=== PATIENT | female | born 2000 | race Two or more races ===

== ENCOUNTER 2023-05-27 17:20 | Emergency (ER) | payer OTHER ==
[2023-05-27 17:45] VITALS: BP 106/56; O2SAT 100
[2023-05-27 18:02] LABS: BILIRUBIN,URINE NEGATIVE (NEGATIVE); GLUCOSE, URINE (UA) NEGATIVE (NEGATIVE); KETONES,URINE (UA) NEGATIVE (NEGATIVE); LEUKOCYTE ESTERASE, URINE NEGATIVE (NEGATIVE); NITRITE,URINE NEGATIVE (NEGATIVE); OCCULT BLOOD,URINE NEGATIVE (NEGATIVE); PH,URINE 6.5 PH (5.0-7.5); PROTEIN,URINE NEGATIVE (NEGATIVE); UROBILINOGEN,URINE 0.2 (NORMAL) E.U./dL (NORMAL)
[2023-05-27 18:05] LABS: CLARITY,URINE CLEAR (CLEAR); HCG UR QUAL POSITIVE
[2023-05-27] MEDS ORDERED: ONDANSETRON ODT 4 MG TABLET TL STA ×2 (19:06→20:39)
--- NOTE | 2023-05-27 20:33 | ED Physician Documentation ---
History of Present Illness - Stated complaint Stated Complaint: N/V - Chief complaint Chief Complaint: General - History obtained from History obtained from: Patient, Family - Additonal information Additional information: 23-year-old female presents with her who assists with translation. She is about 7 weeks , did [facility] and was told that everything looked good but patient has been dealing with intermittent nausea and vomiting over the last couple of weeks. She is not on any medication for this. She does not have any abdominal pain, no diarrhea or constipation, no fever or chills, no dysuria or other urinary symptoms, no vaginal bleeding. She has been tolerating some p.o. but frequently feels nauseous and sometimes vomits. She does not have an OB established, it sounds as though there was some confusion after her first visit on the [place] and the has been is trying to navigate the system to establish an OB. The patient is non-[place] speaking however her provides translation. Review of Systems Constitutional: reports: Reviewed and negative Nose: reports: Reviewed and negative Throat: reports: Reviewed and negative Cardiac: reports: Reviewed and negative Respiratory: reports: Reviewed and negative GI: reports: Nausea, Vomiting. denies: Abdominal Pain, Constipation, Diarrhea, Hematemesis : reports: Reviewed and negative PD PAST MEDICAL HISTORY - Past Medical History Past Medical History: No Cardiovascular: None Respiratory: None Neuro: None Endocrine/Autoimmune: None GI: None COMMUNITY DEVELOPMENT PLANNER: None : None HEENT: None Psych: None Musculoskeletal: None Derm: None - Past Surgical History Past Surgical History: No - Present Medications Home Medications: Ambulatory Orders Medication Instructions Recorded Confirmed Ondansetron Odt [Zofran] 4 mg TL Q6H PRN #10 tablet 05/27/23 - Allergies Allergies/Adverse Reactions: Allergies Allergy/AdvReac Type Severity Reaction Status Date / Time No Known Drug Allergies Allergy Verified 05/27/23 17:38 - Social History Does the pt smoke?: No Smoking Status: Never smoker Does the pt drink ETOH?: No Does the pt have substance abuse?: No - Immunizations Immunizations are current?: No - POLST Patient has POLST: No PD ED PE NORMAL - Vitals Vital signs reviewed: Yes - General General: Alert and oriented X 3, No acute distress, Well developed/nourished - HEENT HEENT: Atraumatic, Pharynx benign - Neck Neck: Supple, no meningeal sign, No JVD - Cardiac Cardiac: RRR, No murmur - Respiratory Respiratory: No respiratory distress, Clear bilaterally - Abdomen Abdomen: Normal bowel sounds, Soft, Non tender, Non distended - Back Back: No CVA TTP - Derm Derm: Normal color, Warm and dry Results - Vitals Vitals: Vital Signs - 24 hr 05/27/23 17:28 Temperature 36.3 C L Heart Rate 77 Respiratory 17 Rate Blood Pressure 106/56 L O2 Saturation 100 Oxygen O2 Source Room air - Labs Labs: Laboratory Tests 05/27/23 17:43 Urine Color YELLOW Urine Clarity CLEAR Urine pH 6.5 Ur Specific [place] <=1.005 Urine Protein NEGATIVE Urine Glucose (UA) NEGATIVE Urine Ketones NEGATIVE Urine Occult Blood NEGATIVE Urine Nitrite NEGATIVE Urine Bilirubin NEGATIVE Urine Urobilinogen 0.2 (NORMAL) Ur Leukocyte Esterase NEGATIVE Ur Microscopic Review NOT INDICATED Urine Culture Comments NOT INDICATED Urine HCG, Qual POSITIVE PD Medical Decision Making - ED course Complexity details: reviewed results, re-evaluated patient, considered differential, d/w patient, d/w family ED course: 23-year-old female who is approximately 7 weeks presents with nausea and vomiting. She has had this intermittently throughout the last couple weeks of . No other symptoms. Patient is well-appearing here on physical exam, no acute distress stable vital signs. Urinalysis negative for signs of infection Pap, positive . She has already had a first trimester ultrasound. I therefore do believe this is nausea and vomiting secondary to and have recommended we start on Zofran and also advised that he could obtain [id number] Doxylamine To help with symptoms. I encouraged him to establish their OB care or plumber's assistant care soon as possible to ensure all appropriate testing and monitoring is done. I do not see indication for any blood work today, but advised to return if worsening symptoms or if not relieved by Zofran. Departure - Departure Disposition: 01 Home, Self Care Clinical Impression: Nausea and vomiting during Condition: Good Instructions: ED Preg Morning Sickness Prescriptions: Ondansetron Odt [Zofran] 4 mg TL Q6H PRN #10 tablet PRN Reason: Nausea / Vomiting Comments: Please make an appointment with an baker head or plumber's assistant. These are specialist that help care for the women. The nausea and vomiting she is experiencing is very common in the first trimester and usually gets better as you get towards the second trimester. There are number of different medications that are available to help with them symptoms and we have started her on 1 medication called Jose Maria. If this is not helpful, please see her regular doctor to talk about other medications. Forms: PCP List Discharge Date/Time: 05/27/23 21:01
== END 2023-05-27 21:01 | disposition home or self-care (01) ==
LOC: ED 17:20
DX: O21.0 Mild hyperemesis gravidarum (principal); Z3A.01 Less than 8 weeks gestation of pregnancy
CPT/HCPCS: 81003; 81025; 99283; Q0162; 81001; 87086